=== PATIENT | female | born 1955 | race Caucasian/White ===

== ENCOUNTER 2017-02-10 14:07 | Emergency (ER) | payer OTHER ==
[~2017-02-10] VITALS: Ht 162.6 cm; Wt 106.6 kg
--- NOTE | ~2017-02-10 | EKG ---
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
[~2017-02-10 14:07] MED LIST: ALEVE220 MG PO; ATORVASTATIN CA40 MG PO; BENICAR HCT 401 EAC1 PO; BENICAR HCT 401 EACH PO; BYSTOLIC 5 MG5 M1 PO; BYSTOLIC10 MG PO; CALCIUM-MAGNES1 EA10 PO; HYDROCODON-ACE1 EAC7 PO; IRON325 PO; KEFLEX500 MG PO; MAGNESIUM OXID200 MG PO; NEXIUM20 MG PO; NEXIUM40 MG PO; PERCOCET 5-3251 EACH PO; SENOKOT-S1 TA1 PO; VITAMIN D1000 UNI1 PO; VITAMIN D3400 UNIT PO; XARELTO10 MG PO; ZOFRAN ODT4 MG PO; ZOLOFT 50 MG TA50 M1 PO
[2017-02-10] MEDS ORDERED: FOLBIC RF TABL1 EACH PO (14:19)
[2017-02-10 14:47] LABS: EOSINOPHILS 1.8 % (0.0-3.0); HEMATOCRIT 37.8 % (37.0-47.0); HEMOGLOBIN 12.7 gm/dL (12.0-15.0); LYMPHOCYTES 27.9 % (24.0-44.0); MANUAL DIFF NO; MCH 28.1 pg (26.0-34.0); MCHC 33.6 g/dL (28.0-37.0); MCV 83.5 fL (80.0-100.0); MONOCYTES 7.8 % (1.0-8.0); PLATELET COUNT 236 thou/uL (150-400); POLYS 61.5 % (36.0-66.0); RBC 4.53 mil/uL (4.20-5.00); RDW 14.8 % (10.5-14.5); WBC 8.1 thou/uL (4.0-11.0)
[2017-02-10 14:57] LABS: ALBUMIN 3.3 g/dL (3.4-5.0); ALKALINE PHOSPHATASE 113 U/L (46-116); ANION GAP 8 mmol/L (7-16); BUN 15 mg/dL (7-18); CALCIUM 8.9 mg/dL (8.5-10.1); CHLORIDE 105 mmol/L (98-107); CO2 29 mmol/L (21-32); CREATININE 0.8 mg/dL (0.6-1.0); GLUCOSE 92 mg/dL (74-106); MAGNESIUM 2.1 mg/dL (1.8-2.4); POTASSIUM 3.9 mmol/L (3.5-5.1); SGOT 13 U/L (15-37); SGPT 20 U/L (30-65); SODIUM 142 mmol/L (136-145); TOTAL BILIRUBIN 0.3 mg/dL (<0.1-1.0); TOTAL PROTEIN 7.3 g/dL (6.4-8.2); TROPONIN-I < 0.04 ng/mL (<0.04-0.07)
[2017-02-10] MEDS ORDERED: CARAFATE1 GM/10 ML PO (15:05)
[2017-02-10] MEDS ORDERED: PROTONIX40 MG PO (15:05)
== END 2017-02-10 16:09 | disposition home or self-care (01) ==
LOC: ER 14:07
PROVIDERS: Emergency Medicine
DX: K21.9 Gastro-esophageal reflux disease without esophagitis (principal); I10 Essential (primary) hypertension; F41.9 Anxiety disorder, unspecified; G47.30 Sleep apnea, unspecified; E78.00 Pure hypercholesterolemia, unspecified; Z90.49 Acquired absence of other specified parts of digestive tract

== ENCOUNTER → 2021-06-19 | Outpatient (CLI) | payer OTHER ==
[~2021-06-19] MED LIST changes: +CARAFATE1 GM/10 ML PO; +FOLBIC RF TABL1 EACH PO; +PROTONIX40 MG PO
== END ==
LOC: SJCVCIMAG 08:46
PROVIDERS: ATTEND Internal Medicine Cardiovascular Disease
DX: R06.00 Dyspnea, unspecified (principal); R53.83 Other fatigue; R06.02 Shortness of breath; R07.9 Chest pain, unspecified; I10 Essential (primary) hypertension; G47.33 Obstructive sleep apnea (adult) (pediatric)

== ENCOUNTER → 2021-06-22 | Outpatient (CLI) | payer OTHER ==
[~2021-06-22] VITALS: Ht 160 cm; Wt 112.5 kg
[~2021-06-22] MED LIST changes: +ASPIRIN EC325 M1 PO; +DEMADEX20 MG PO; +DIOVAN HCT 3201 EACH PO; +LIPITOR 20 MG T20 M1 PO; +PRILOSEC10 MG PO; +SERTRALINE HCL100 MG PO; +VITAMIN B-121000 MC2 PO; +VITAMIN D3 COM1 EACH PO; +VITAMIN D31250 MC1 PO; -VITAMIN D3400 UNIT PO
[2021-06-22 07:10] VITALS: BP 140/74
[2021-06-22 08:53] LABS: ABSOLUTE NEUTROPHILS 5.1 thou/uL (1.4-8.2); BASOPHILS 1.3 % (0.0-2.0); EOSINOPHILS 1.7 % (0.0-3.0); HEMATOCRIT 30.2 % (37.0-47.0); HEMOGLOBIN 9.6 gm/dL (12.0-15.0); LYMPHOCYTES 18.7 % (24.0-44.0); MCH 22.8 pg (26.0-34.0); MCHC 31.8 g/dL (28.0-37.0); MCV 71.5 fL (80.0-100.0); MONOCYTES 7.6 % (1.0-8.0); PLATELET COUNT 276 thou/uL (150-400); POLYS 70.7 % (36.0-66.0); RBC 4.23 mil/uL (4.20-5.00); RDW 18.3 % (10.5-14.5); WBC 7.3 thou/uL (4.0-11.0)
[2021-06-22 09:01] LABS: CALCIUM 8.6 mg/dL (8.5-10.1); CREATININE 0.9 mg/dL (0.6-1.0)
[2021-06-22 10:46] LABS: ANISOCYTOSIS 1+; PLATELET ESTIMATE NORMAL
[2021-06-22 10:47] LABS: MICROCYTES SLIGHT
--- NOTE | 2021-06-22 14:22 | CATHLAB ---
[facility] [place] [address] INVASIVE PROCEDURE REPORT Name: CARLIN WOLFE Room #: [facility] Edi#: [id number] Admission: 06/22/21 Attend Phys: Memo Luque MD, Discharge: Date of : 53 Report #: [id number] THIS REPORT FOR: cc: Caesar Perez James D. DO Mancuso, Gerald M. MD [facility] ~ APPROVED REPORT Study performed: 06/22/2021 07:06:49 Patient Details Patient Status: Out-Patient Room #: The patient is a 65 year-old female Event Personnel Memo Luque Manager Engine, Carlos Duarte RN RN, Terri Kam RN RN, Jud Burrell Monitor, Jessica Ruffin RTR, ALEXANDRA Scrub, Glenda Johnston RTR Scrub Procedures Performed Art Access - R femoral artery* João Access - R femoral vein Right and Left Heart Cath w/or w/o Coronarie [id number] [facility] 44455 Initial Mod Sed Same Phys/QHP Gr5y [id number] 30817 Mod Sed Same Phys/QHP Ea [id number] Aortogram Abdominal Peripheral Angio 126930 Hemostasis w/ Mynx Indication Chest pain Procedure Narrative The Right Groin 20 ML^ was infiltrated with subcutaneous anesthesia. A PINNACLE 6FR Sheath #[id number] sheath was inserted into the RFA 6F^. Coronary angiography was performed using coronary diagnostic catheters. The right coronary system was accessed and visualized with a JR4 catheter. The left coronary system was accessed and visualized with a JL4 catheter. The left ventricle was accessed and visualized with a STR PIG catheter. Left ventriculogram was performed in 30 degree projection. There was no hematoma. Intraoperative Conscious Sedation Sedation start time: 930 Case end Time: 1019 Fentanyl 100 mcg Versed 2 mg [facility] [place] [employer] [address] INVASIVE PROCEDURE REPORT Name: CARLIN WOLFE Room #: [facility] Edi#: [id number] Admission: 06/22/21 Attend Phys: Memo Luque, Discharge: Date of : 53 Report #: [id number] Fluoro Time: 3.50 minutes Dose: DAP 7389.60 cGycm2 732 mGy Contrast Type and Amount: Visipaque 105 ml Hemodynamics The right atrial mean pressure is 15 mmHg. The right ventricular pressure is 40/6 mmHg. The pulmonary artery pressure is 47/23 mmHg with a mean of 36 mmHg. The mean pulmonary capillary wedge pressure is 33 mmHg. The aortic pressure is 166/91 mmHg with a mean of 34 mmHg. The left ventricular pressure is 181/15 mmHg with a mean of mmHg. The left ventricular end diastolic pressure is 22 mmHg. The cardiac output using thermo method is 6.60 L/min. The cardiac index using thermo method is 3.11 L/min/m2. Conclusion #1 Successful right heart catheterization with cardiac output by thermodilution. See above hemodynamics. #2 normal left jugular size and systolic function lower limits of normal EF 50 to 55%. #3 abdominal aortogram is moderately tortuous but no occlusive disease and no aneurysm formation. #4 left main is large and free of disease giving rise to LAD and circumflex. #5 the LAD extends to the apex there is no occlusive disease. It is a smaller attenuated vessel distally. #6 circumflex OM is a large system although anatomically nondominant widely patent. #7 dominant right coronary artery no occlusive disease Recommendations and plan: Continue aggressive risk factor modification. Have initiated diuresis. This appears to be diastolic dysfunction with moderate elevations in pulmonary pressure and wedge pressure see above. Fluid restriction diuresis weight loss all recommended. Follow-up arranged in 2 weeks. <ELECTRONICALLY SIGNED> By: Memo Luque MD, FACC 06/22/21 1421 142 142 Memo Luque MD, FACC /INF
== END | disposition home or self-care (01) ==
LOC: CATH 06:27
PROVIDERS: ATTEND Internal Medicine Cardiovascular Disease
DX: R07.9 Chest pain, unspecified (principal); R94.39 Abnormal result of other cardiovascular function study; I25.10 Atherosclerotic heart disease of native coronary artery without angina pectoris; I10 Essential (primary) hypertension; E78.5 Hyperlipidemia, unspecified; E78.00 Pure hypercholesterolemia, unspecified; K21.9 Gastro-esophageal reflux disease without esophagitis; F41.9 Anxiety disorder, unspecified; G47.33 Obstructive sleep apnea (adult) (pediatric); Z96.653 Presence of artificial knee joint, bilateral; Z90.49 Acquired absence of other specified parts of digestive tract; Z90.710 Acquired absence of both cervix and uterus; Z98.890 Other specified postprocedural states; Z79.899 Other long term (current) drug therapy

== ENCOUNTER → 2021-10-08 | Outpatient (CLI) | payer OTHER | END | disposition home or self-care (01) | LOC: SJCVC 10:30 | PROVIDERS: ATTEND Internal Medicine Cardiovascular Disease | DX: R00.2 Palpitations (principal); I25.10 Atherosclerotic heart disease of native coronary artery without angina pectoris ==